=== PATIENT | female | born 1955 | race Hispanic/Latino ===

== ENCOUNTER → 2023-03-08 | Outpatient (CLI) | payer OTHER | END | disposition home or self-care (01) | LOC: OIH 14:08 | PROVIDERS: ATTEND Internal Medicine Cardiovascular Disease | DX: Z13.6 Encounter for screening for cardiovascular disorders (principal); R93.1 Abnormal findings on diagnostic imaging of heart and coronary circulation; I25.10 Atherosclerotic heart disease of native coronary artery without angina pectoris | CPT/HCPCS: 75571 ==